=== PATIENT | male | born 1995 | race Asian ===

== ENCOUNTER 2019-10-12 10:07 | Emergency (ER) | payer OTHER ==
[~2019-10-12] VITALS: Ht 177.8 cm; Wt 86.2 kg
[2019-10-12 10:22] VITALS: Ht 177.8 cm; Wt 86.2 kg
[2019-10-12 10:44] LABS: BASOPHIL % 0.8 % (0-2); PLATELET COUNT 241 x10^3mcL (130-400); RED CELL DISTRIBUTION WIDTH 12.7 % (11.5-14.5)
[2019-10-12 11:03] LABS: microscopic required? NO
[2019-10-12 11:10] LABS: ALBUMIN 3.8 g/dL (3.4-5.0); ALKALINE PHOSPHATASE 43 U/L (46-116); ALT/SGPT 82 U/L (16-63); AST/SGOT 35 U/L (15-37); BILIRUBIN TOTAL 0.2 mg/dL (0.20-1.00); CALCIUM 8.7 mg/dL (8.5-10.1); CARBON DIOXIDE 19.6 mmol/L (21-32); CHLORIDE SERUM 106 mmol/L (98-107); GFR1 > 60 mL/min; GLUCOSE SERUM 124 mg/dL (74-106); POTASSIUM SERUM 3.8 mmol/L (3.5-5.1); SODIUM SERUM 139 mmol/L (136-145); TOTAL PROTEIN, SERUM 7.5 g/dL (6.4-8.2)
[2019-10-12 11:11] LABS: urine erythrocyte NEGATIVE (NEGATIVE)
[2019-10-12 12:11] LABS: AMPHETAMINE QUAL UR NONE DETECTED (See below)
[2019-10-12 23:11] VITALS: BP 143/81
== END 2019-10-12 20:02 ==
LOC: ED 10:07
PROVIDERS: Emergency Medicine
DX: S50.811A Abrasion of right forearm, initial encounter (principal); R45.851 Suicidal ideations; F32.9 Major depressive disorder, single episode, unspecified; F12.90 Cannabis use, unspecified, uncomplicated; W26.0XXA Contact with knife, initial encounter; Y93.89 Activity, other specified; Y92.89 Other specified places as the place of occurrence of the external cause; Y99.8 Other external cause status
CPT/HCPCS: 36415; G0480

== ENCOUNTER 2020-08-07 13:54 | Emergency (ER) | payer OTHER ==
[~2020-08-07] VITALS: Ht 177.8 cm; Wt 93.4 kg
[2020-08-07 14:03] VITALS: Ht 177.8 cm; Wt 93.4 kg
[2020-08-07 15:53] VITALS: BP 135/71
== END 2020-08-07 15:53 | disposition home or self-care (01) ==
LOC: ED 13:54
DX: S01.511A Laceration without foreign body of lip, initial encounter (principal); Y04.8XXA Assault by other bodily force, initial encounter; Y93.89 Activity, other specified; Y92.89 Other specified places as the place of occurrence of the external cause; Y99.8 Other external cause status
CPT/HCPCS: 90715; J1885; J2001